=== PATIENT | female | born 1945 | race Caucasian/White ===

== ENCOUNTER 2017-01-12 08:02 | Outpatient (CLI) | payer OTHER, MEDICARE | END 2017-01-12 19:55 | disposition home or self-care (01) | LOC: SRD 08:02 | PROVIDERS: ATTEND Internal Medicine | DX: M17.0 Bilateral primary osteoarthritis of knee (principal); M25.762 Osteophyte, left knee; M25.761 Osteophyte, right knee; M77.31 Calcaneal spur, right foot; M19.071 Primary osteoarthritis, right ankle and foot; M79.89 Other specified soft tissue disorders ==